=== PATIENT | male | born 1965 | race Caucasian/White ===

== ENCOUNTER 2022-04-07 07:01 | Outpatient (CLI) | payer OTHER, SELFPAY | END 2022-04-07 07:02 | disposition home or self-care (01) | LOC: INJ CL 07:03 | PROVIDERS: Visit Provider Family Medicine | DX: M51.16 Intervertebral disc disorders with radiculopathy, lumbar region (principal) | CPT/HCPCS: 64483; J1100; J2795; Q9966 ==